=== PATIENT | female | born 1980 ===

== ENCOUNTER 2018-09-02 06:43 | Day surgery (SDC) | payer OTHER ==
[~2018-09-02 06:43] MED LIST: BENICAR20 MG PO; JARDIANCE25 MG PO; METFORMIN HCL750 MG PO
== END 2018-09-02 12:45 | disposition home or self-care (01) ==
LOC: CIR.AMB 06:43
DX: D17.22 Benign lipomatous neoplasm of skin and subcutaneous tissue of left arm (principal); M65.312 Trigger thumb, left thumb